=== PATIENT | female | born 1995 | race Asian ===

== ENCOUNTER 2021-02-02 13:16 | Emergency (ER) | payer MEDICAID ==
[~2021-02-02] VITALS: Ht 157.5 cm; Wt 52.1 kg
[2021-02-02 14:03] LABS: BASOPHILS % (AUTO) 1 % (0-1); EOSINOPHILS % (AUTO) 1 % (1-7); LYMPHOCYTES % (AUTO) 40 % (22-44); MEAN CORPUSCULAR HEMOGLOBIN 31.4 pg (27.0-34.8); MEAN CORPUSCULAR HGB CONC 33.3 g/dL (32.4-35.8); MEAN PLATELET VOLUME 7.3 fL (7.4-10.4); MONOCYTES % (AUTO) 9 % (2-9); NEUTROPHILS % (AUTO) 49 % (42-75); PLATELET COUNT 347 x10^3/uL (130-400); RED BLOOD COUNT 4.38 x10^6/uL (3.82-5.3); RED CELL DISTRIBUTION WIDTH 12.6 % (9.6-15.2)
[2021-02-02 14:05] LABS: MD NO
[2021-02-02 14:13] LABS: ALBUMIN 4.3 g/dL (3.4-5.0); ANION GAP 4 mmol/L (5-15); CALCIUM 9.3 mg/dL (8.5-10.1); CHLORIDE 107 mmol/L (98-107)
[2021-02-02 14:20] LABS: CREATININE 0.73 mg/dL (0.55-1.02)
[2021-02-02 14:21] LABS: MICROSCOPIC AUTO
--- NOTE | 2021-02-02 15:31 | NUR ---
MOSAIC FLOOR LAYER NIL X 1
[2021-02-02 16:06] VITALS: BP 116/79
--- NOTE | 2021-02-02 16:08 | NUR ---
PT AMBULATORY TO ROOM, CHANGED INTO GOWN. MONITORS IN PLACE. AT BS
[2021-02-02] MEDS ORDERED: ONDANSETRON ODT 4 MG ONE (16:14)
--- NOTE | 2021-02-02 16:22 | NUR ---
Patient given discharge instructions and they have confirmed that they understand the instructions. Patient ambulatory with steady gait.
== END 2021-02-02 16:39 | disposition home or self-care (01) ==
LOC: ED 16:29
DX: R10.2 Pelvic and perineal pain (principal); R10.31 Right lower quadrant pain
CPT/HCPCS: 36415; 76830; 80048; 81001; 82040; 84703; 85025; 99284